=== PATIENT | male | born 1935 | race Hispanic/Latino ===

== ENCOUNTER 2018-02-24 06:35 | Observation (INO) | payer OTHER ==
[2018-02-22 14:35] LABS: BASOPHILS # (AUTO) 0.1 (0.0-0.1); BASOPHILS % 0.7 % (0.0-1.0); EOSINOPHILS # (AUTO) 0.3 (0.0-0.4); EOSINOPHILS % 3.1 % (0.0-6.0); HEMATOCRIT 44.9 % (38.2-49.6); HEMOGLOBIN 15.5 g/dL (14.0-18.0); LYMPHOCYTES # (AUTO) 2.5 (1.0-3.2); LYMPHOCYTES % 25.5 % (18.0-39.1); MEAN CORPUSCULAR HEMOGLOBIN 32.6 pg (28-32); MEAN CORPUSCULAR HGB CONC 34.5 g/dL (31-35); MEAN CORPUSCULAR VOLUME 94.5 fL (81-99); MONOCYTES # (AUTO) 0.6 (0.2-0.8); MONOCYTES % 6.4 % (4.4-11.3); NEUTROPHILS # (AUTO) 6.2 (2.1-6.9); PLATELET COUNT 191 x10e3/uL (140-360); RED BLOOD COUNT 4.75 x10e6/uL (4.3-5.7); RED CELL DISTRIBUTION WIDTH 12.2 % (11.7-14.4)
[2018-02-22 14:49] LABS: INR 1.05; PROTHROMBIN TIME 12.9 seconds (11.9-14.5)
[2018-02-22 14:50] LABS: PARTIAL THROMBOPLASTIN TIME 29.3 seconds (23.8-35.5)
[2018-02-22 14:57] LABS: ANION GAP 11.9 mmol/L (8-16); BLOOD UREA NITROGEN 16 mg/dL (7-26); BUN/CREATININE RATIO 19 (6-25); CALCIUM 9.5 mg/dL (8.4-10.2); CARBON DIOXIDE 27 mmol/L (22-29); CHLORIDE 105 mmol/L (98-107); CREATININE, SERUM 0.84 mg/dL (0.72-1.25); EST GLOMERULAR FILTRATION RATE > 60 ML/MIN (60-); GLUCOSE 78 mg/dL (74-118); POTASSIUM 3.9 mmol/L (3.5-5.1); SODIUM 140 mmol/L (136-145)
--- NOTE | 2018-02-22 15:01 | Diagnostic Imaging Report ---
PROCEDURE: Frontal and lateral views of the chest. COMPARISON: None. INDICATIONS: PREOP SURGERY NECK WEDNESDAY FINDINGS: Lines/tubes: None. Lungs: The lungs are well inflated and clear. There is no evidence of pneumonia or pulmonary edema. Pleura: There is no pleural effusion or pneumothorax. Heart and mediastinum: The heart and the mediastinum are normal. Bones: No acute bony abnormality. IMPRESSION: 1. No acute cardiopulmonary abnormalities. Robbi De La Cruz M.D. Dictated by: Robbi De La Cruz M.D. on 02/22/2018 at 15:03 Electronically approved by: Robbi De La Cruz M.D. on 02/22/2018 at 15:03
[~2018-02-24] VITALS: Ht 172.7 cm; Wt 74.8 kg
[~2018-02-24 06:35] MED LIST: AMLODIPINE-BEN1 EAC4 PO; ASPIR 8181 MG PO; ASPIRIN81 MG PO; BENAZEPRIL HCL10 MG PO; CLOPIDOGREL75 MG PO; DIPHENHYDRAMINE25 M2 PO; FINASTERIDE5 MG PO; GABAPENTIN300 MG PO; METOPROLOL TART25 MG PO; NORCO 5-325 TA1 EACH PO; NORCO 7.5-3251 EACH PO; SIMVASTATIN40 MG PO; TAMSULOSIN HCL0.4 MG PO
--- OUTSIDE RECORDS SUMMARY | 2018-02-24 06:38 | XMS REPORT ---
Author Author [facility] Address Unknown Phone Unavailable Care Team Providers Care Key Entry Operator Name Role Phone ANABELA OSUNA Unavailable Unavailable Problems This patient has no known problems. Allergies, Adverse Reactions, Alerts This patient has no known allergies or adverse reactions. Medications This patient has no known medications. Results Test Description Test Time Test Comments Text Results Atomic Results Result Comments CHEST 2 VIEWS [place] [address] Patient Name: SISSY GAN MR #: [id number] : 1935 Age/Sex: 82/M Req #: [id number] Adm Physician: Ordered by: ANABELA OSUNA MD Report #: [id number] Location: OR Room/Bed: Procedure: [id number] DX/CHEST 2 VIEWS Exam Date: Exam Time: REPORT STATUS: Signed PROCEDURE: Frontal and lateral views of the chest. COMPARISON: None. INDICATIONS: PREOP SURGERY NECK WEDNESDAY FINDINGS: Lines/tubes: None. Lungs: The lungs are well inflated and clear. There is no evidence of pneumonia or pulmonary edema. Pleura : There is no pleural effusion or pneumothorax. Heart and mediastinum: The heart and the mediastinum are normal. Bones: No acute bony abnormality. IMPRESSION: 1. No acute cardiopulmonary abnormalities. Kalyan De La Cruz M.D. Dictated by: Kalyan De La Cruz M.D. on 02/22/2018 at 15:03 Electronically approved by: Kalyan De La Cruz M.D. on 02/22/2018 at 15:03 Dictated By: KALYAN DE LA CRUZ MD [id number] Transcribed By: MALAIKA on 02/22/18 1503 COPY TO: ANABELA OSUNA MD
[2018-02-24] MEDS ORDERED: ACETAMINOPHEN 1000 MG/100 ML 100 ML IV ONE (07:30)
[2018-02-24] MEDS ORDERED: LIDOCAINE HCL (LTA) 4 ML SOLN ONE (07:30)
[2018-02-24] MEDS ORDERED: CEFAZOLIN SOD 1 GM VIAL ONE (08:26)
[2018-02-24 08:38] LABS: INR 1.07; PROTHROMBIN TIME 13.1 seconds (11.9-14.5)
[2018-02-24] MEDS ORDERED: BACITRACIN 50,000 UNIT VIAL ONE (08:59)
[2018-02-24] MEDS ORDERED: THROMBIN FOR SOLN 5,000 UNIT VIAL ONE (08:59)
[2018-02-24] MEDS ORDERED: NEOSTIGMINE 1 MG/ML 10ML VIAL ONE (08:59)
[2018-02-24] MEDS ORDERED: GELATIN SPONGE SZ 100 ONE ×2 (08:59→11:17)
[2018-02-24] MEDS ORDERED: BUPIVACAINE 0.5%/EPI 30 ML SDV INJ ONE (08:59)
[2018-02-24] MEDS ORDERED: HEPARIN SOD (PORCINE) 1000 UNIT/ML SDV ONE (09:31)
[2018-02-24] MEDS ORDERED: SODIUM CHLORIDE 0.9% 500ML 500 ML ONE (09:32)
[2018-02-24] MEDS ORDERED: PROMETHAZINE HCL (IM) 25 MG/ML VIAL IM PRN (13:00)
[2018-02-24] MEDS ORDERED: CEPACOL SORE THROAT LOZENGES PO PRN (13:00)
[2018-02-24] MEDS ORDERED: ONDANSETRON HCL INJ 2 MG/ML VIAL IV PRN (13:00)
[2018-02-24] MEDS ORDERED: MAGNESIUM/ALUMINUM/SIMETHICONE 30 ML UDC PO PRN (13:00)
[2018-02-24] MEDS ORDERED: MORPHINE SULFATE 5 MG/ML VIAL IM PRN (13:00)
[2018-02-24] MEDS ORDERED: ACETAMINOPHEN 325 MG TAB PO PRN (13:00)
[2018-02-24] MEDS ORDERED: HYDROMORPHONE 2MG/ML INJ IV PRN (13:00)
[2018-02-24] MEDS ORDERED: FENTANYL CITRATE/PF 100MCG/2 ML INJ ONE ×2 (13:05→18:52)
[2018-02-24 13:25] VITALS: BP 150/74
[2018-02-24 13:30] VITALS: BP 150/74
[2018-02-24] MEDS: OXYCODONE/ACETAMINOPHEN 5-325 1 EACH TABLET PO PRN (14:00)
[2018-02-24] MEDS ORDERED: MORPHINE SULFATE 2 MG/ML SYR IV PRN (14:00)
[2018-02-24] MEDS: LACTATED RINGER'S 1,000 ML IV SCH ×2 (14:00→20:50)
[2018-02-24] MEDS ORDERED: ONDANSETRON HCL 4 MG ORAL DISINTEGRATING TAB SL PRN (14:00)
[2018-02-24] MEDS ORDERED: CEFAZOLIN SOD 1 GM/NS 50ML 50 ML IV SCH (14:00)
[2018-02-24] MEDS: CARISOPRODOL 350 MG TAB PO PRN (14:00)
[2018-02-24 14:23] VITALS: BP 150/74
--- NOTE | 2018-02-24 14:59 | Operative Report ---
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 PROCEDURES 1. C5 bilateral decompressive laminectomy. 2. C6 bilateral decompressive laminectomy. 3. C7 bilateral decompressive laminectomy. ANESTHESIA: General. INDICATIONS: The patient is an 82-year-old man, who presents with severe multilevel cervical spinal stenosis, worse at C5-6 and C6-7 with cord compression and myelomalacia. He has a severe myelopathy syndrome. He was taken to the operating room for bilateral decompressive laminectomies without fusion. DESCRIPTION OF PROCEDURE: After the induction of general anesthesia, the patient was placed on the operating table in the prone position over gel rolls. The head of the bed was elevated 30 degrees. The neck was flexed and fixed in the [place] mophead trimmer and wrapper. The fluoroscopic C-arm was positioned in cross-table lateral orientation. The posterior aspect of the neck was prepped and draped in a sterile fashion. A limited incision was created along the midline, and the spinous processes and laminae of C5, C6 and C7 were exposed. The medial aspects of the facet joints were exposed. The spinous processes were resected after fluoroscopic confirmation. A high-speed drill equipped with a 4-mm jenifer bur was then used to drill a trough on either side of the laminae of C5, C6 and C7. These laminae were then carefully elevated with an up-angled curet and removed away from the dura. The markedly hypertrophic ligamentum flavum on the sides in the vicinity of the facet joints was then carefully resected with the 1-mm Kerrison rongeur to fully expose and decompress the dura along its posterolateral margins. Excellent decompression was thus achieved. Meticulous hemostasis was secured. The lateral recesses were lined with Gelfoam. A small Hemovac drain was placed and brought out through a separate stab incision. The muscles and fascial layers were closed with #0 Vicryl suture. The subcutaneous layer was closed with 2-0 Vicryl sutures. The skin was closed with jaspreet. A dressing was applied. The patient was awakened, extubated, and taken to the postanesthesia care unit in stable condition. No intraoperative complications were encountered. Estimated blood loss was 20 mL. Job#: [id number]
[2018-02-24 15:42] VITALS: BP 156/78
[2018-02-24] MEDS: CEFAZOLIN SOD 1 GM VIAL IV SCH (17:00)
[2018-02-24] MEDS: GABAPENTIN 300 MG CAP PO SCH (17:00)
[2018-02-24] MEDS ORDERED: GLYCOPYRROLATE INJ 1MG/ 5 ML SYR ONE (18:10)
[2018-02-24] MEDS ORDERED: LIDOCAINE HCL 2% JELLY 5 ML TUBE ONE (18:10)
[2018-02-24] MEDS ORDERED: LIDOCAINE HCL 2% LOCAL INJ 5 ML SDV VIAL INJ ONE (18:10)
[2018-02-24] MEDS ORDERED: PROPOFOL IV EMULSION 10 MG/ML 20 ML VIAL ONE (18:10)
[2018-02-24] MEDS ORDERED: EYE LUBRICANT OPTH OINT 3.5GM TUBE OP ONE (18:10)
[2018-02-24] MEDS ORDERED: EPHEDRINE SULFATE INJ 50 MG/10 ML SYR ONE (18:10)
[2018-02-24] MEDS ORDERED: NEOSTIGMINE 5 MG/5ML SYR ONE (18:10)
[2018-02-24] MEDS ORDERED: ROCURONIUM BROMIDE 10 MG/ML 5ML VIAL ONE (18:10)
[2018-02-24] MEDS ORDERED: DEXAMETHASONE SOD PHOS INJ 4 MG/ML VIAL ONE (18:10)
[2018-02-24] MEDS ORDERED: ONDANSETRON HCL INJ 2 MG/ML VIAL ONE (18:10)
[2018-02-24] MEDS ORDERED: DESFLURANE 240 ML BTL INH ONE (18:10)
[2018-02-24] MEDS ORDERED: MIDAZOLAM HCL 2 MG/2 ML VIAL ONE (18:52)
[2018-02-24 20:00] VITALS: BP 153/91
[2018-02-24] MEDS ORDERED: SIMVASTATIN 40 MG TAB PO SCH (21:00)
[2018-02-24] MEDS ORDERED: ZOLPIDEM TARTRATE 5 MG TAB PO PRN (21:00)
[2018-02-25] VITALS: BP 139/71
[2018-02-25] MEDS: CEFAZOLIN SOD 1 GM VIAL IV SCH ×2 (01:21→09:39)
[2018-02-25 04:00] VITALS: BP 161/74
[2018-02-25 08:00] VITALS: BP 161/74
[2018-02-25 08:34] VITALS: BP 131/67
[2018-02-25] MEDS ORDERED: TAMSULOSIN HCL 0.4 MG CAP PO SCH (09:00)
[2018-02-25] MEDS ORDERED: FINASTERIDE 5 MG TAB PO SCH (09:00)
[2018-02-25] MEDS ORDERED: BENAZEPRIL HCL 10 MG TAB PO SCH (09:00)
[2018-02-25] MEDS: GABAPENTIN 300 MG CAP PO SCH (09:39)
[2018-02-25] MEDS: OXYCODONE/ACETAMINOPHEN 5-325 1 EACH TABLET PO PRN (09:40)
[2018-02-25] MEDS: CARISOPRODOL 350 MG TAB PO PRN (09:40)
[2018-02-25 12:00] VITALS: BP 142/66
[2018-02-25] MEDS ORDERED: NORCO 7.5-3251 EACH PO (12:19)
== END 2018-02-25 13:05 | disposition home or self-care (01) ==
LOC: OR 06:35 → IMCU 13:42
PROVIDERS: ADMIT Neurological Surgery; ATTEND Neurological Surgery
DX: M50.022 Cervical disc disorder at C5-C6 level with myelopathy (principal); G95.89 Other specified diseases of spinal cord; I10 Essential (primary) hypertension; R53.1 Weakness
CPT/HCPCS: 36415 ×2; 63045; 63048 ×2; 71046; 77003; 80048; 85025; 85610 ×2; 85730 ×2; 86850; 86900; 88305; 88311; 93005; 97116; 97162; 97530; G0378 ×2; J0690 ×2; J1100; J1170; J1644; J2001 ×2; J2250; J2405; J2710; J7040; 88304

== ENCOUNTER → 2022-05-08 | Day surgery (SDC) | payer OTHER ==
[~2022-05-08] MED LIST changes: +ATORVASTATIN CA20 MG PO; +BUPIVACAINE 0.25% 30ML SDV ONE; +CENTRUM ADULTS1 EACH PO; +NEOSTIGMINE 1 MG/ML 10ML VIAL ONE; +STOOL SOFTENER50 MG PO; +VITAMIN D310 MCG PO
[2022-05-08 07:13] LABS: BASOPHILS % 0.4 % (0.0-1.0); EOSINOPHILS # (AUTO) 0.2 (0.0-0.4); EOSINOPHILS % 1.5 % (0.0-6.0); HEMATOCRIT 43.6 % (38.2-49.6); HEMOGLOBIN 14.5 g/dL (14.0-18.0); LYMPHOCYTES # (AUTO) 2.3 (1.0-3.2); LYMPHOCYTES % 21.1 % (18.0-39.1); MEAN CORPUSCULAR HEMOGLOBIN 32.2 pg (28-32); MEAN CORPUSCULAR HGB CONC 33.3 g/dL (31-35); MEAN CORPUSCULAR VOLUME 96.7 fL (81-99); MONOCYTES # (AUTO) 0.6 (0.2-0.8); MONOCYTES % 5.4 % (4.4-11.3); NEUTROPHILS # (AUTO) 7.7 (2.1-6.9); NEUTROPHILS % 71.3 % (38.7-80.0); PLATELET COUNT 169 x10e3/uL (140-360); RED BLOOD COUNT 4.51 x10e6/uL (4.3-5.7); RED CELL DISTRIBUTION WIDTH 12.1 % (11.7-14.4)
[2022-05-08 09:05] VITALS: BP 132/65
== END | disposition home or self-care (01) ==
LOC: OR 06:12
PROVIDERS: ATTEND Urology
DX: N47.1 Phimosis (principal); R97.20 Elevated prostate specific antigen [PSA]; N39.0 Urinary tract infection, site not specified; N40.1 Benign prostatic hyperplasia with lower urinary tract symptoms; R39.14 Feeling of incomplete bladder emptying; R35.1 Nocturia; N52.9 Male erectile dysfunction, unspecified; I10 Essential (primary) hypertension; Z20.822 Contact with and (suspected) exposure to COVID-19; Z79.02 Long term (current) use of antithrombotics/antiplatelets; Z79.899 Other long term (current) drug therapy
CPT/HCPCS: 0223U; 36415; 54001; 71046; 85025; J0690; J2710